=== PATIENT | male | born 1970 | race Caucasian/White ===

== ENCOUNTER 2021-12-26 09:41 | Emergency (ER) | payer SELFPAY ==
[2021-12-26 09:43] VITALS: BP 137/77; PULSE 74; RESP 20; TEMP 36.6; O2SAT 100
[2021-12-26 09:51] VITALS: RESP 20
--- NOTE | 2021-12-26 10:14 | ED.GENADUL_ITS ---
Discharge Plan Disposition Patient Disposition: HOME Condition: Stable Discharge Details Clinical Impression: Chlamydia contact Primary Care Provider: None,None ED Provider: Nat Green Home Meds and New Rx's Prescriptions: No Action ibuprofen 200 MG capsule 600 mg PO PRN PRN Discharge Instructions Instructions: Chlamydia (ED) Additional Instructions: The test will not be resulted for approximately 48 to 72 hours. You were given antibiotics here in the department to treat you empirically for the chlamydia. Please abstain from sexual intercourse until your partner is testing negative. Follow up with primary care provider in 3-5 days. Return to ED sooner if any worsening or concerns. Increase oral fluids. Medical Decision Making Urethral swab obtained patient tolerated well. No lesions or discharge noted no meatus erythema. Patient was given 2 g azithromycin and 500 mg ceftriaxone IM. Instructed on staying from sexual intercourse until results. Patient verbalized understanding. Discussed follow-up care. This text was generated using [employer] dictation system, please disregard any oddities of phrase or misspellings. HPI General Mode of arrival: ambulatory . Date/Time Provider Initiated Documentation: 12/26/21 09:56 . Limitations to Documentation: no limitations . Information obtained by: patient, RN notes reviewed and old records reviewed . HPI Narrative: 51 year old male presents to the ER with chief complaint positive contact with chlamydia. He reports that his girlfriend tested positive last week. He reports that he did have treatment for chlamydia approximately a month ago. He was recommended to get tested. He denies any dysuria no rash or any drainage. No other associated symptoms. Related Data Home Medications Medication Instructions Recorded Confirmed ibuprofen 200 mg capsule 600 mg PO PRN PRN 12/31/12 12/26/21 Allergies Allergy/AdvReac Type Severity Reaction Status Date / Time acorn squash Allergy Mild Hives Uncoded 12/26/21 09:49 General Stated Complaint: GenMedical STEPHANIE: 4 Review of Systems All systems reviewed & are unremarkable except as noted in HPI and below Genitourinary Genitourinary: Reports as per HPI, Denies difficulty urinating, Denies dysuria, Denies penile discharge, Denies testicular mass and Denies testicular pain PFSH All Active Problems (Updated 12/26/21 @ 10:50 by Nat Green NP) Chlamydia contact (Acute) Social History Smoking/Tobacco Use Status: Current every day Tobacco Type: cigarettes Smoking risk assessment performed?: Yes Drug use: Daily Substance use type: marijuana Do you feel safe at home: Yes Do you feel safe in your relationship?: Yes Exam Male General Exam: Yes normal external exam, No erythema, No lesions and No tenderness Penis: normal penis, not erythematous, no pustules, no swelling, no ulcerations and no vesicles Meatus: meatus normal Scrotum: scrotum normal Testes: normal Course Vital Signs Vital signs: Vital Signs Temperature 36.6 C 12/26/21 09:43 Pulse 74 12/26/21 09:43 Respiratory Rate 20 12/26/21 09:43 Blood Pressure 137/77 12/26/21 09:43 Pulse Oximetry 100 12/26/21 09:43 Temperature 36.6 C 12/26/21 09:43 Temperature Source Temporal Artery Scan 12/26/21 09:43 Pulse 74 12/26/21 09:43 Respiratory Rate 20 12/26/21 09:51 Respiratory Effort 12/26/21 09:51 Respiratory Depth Normal 12/26/21 09:51 Respiratory Pattern Normal 12/26/21 09:51 Blood Pressure 137/77 12/26/21 09:43 Blood Pressure Position Sitting 12/26/21 09:43 Pulse Oximetry 100 12/26/21 09:43 Oxygen Delivery Method Room Air 12/26/21 09:43 Oxygen Flow Rate 0 12/26/21 09:43 Pain Level 0 12/26/21 09:43
[2021-12-26] MEDS: cefTRIAXone 500 MG VIAL IM (10:55)
[2021-12-27 15:26] LABS: GC Result Negative (Negative)
[2021-12-27 15:57] LABS: Chlamydia Result Positive (Negative)
--- NOTE | 2021-12-30 07:12 | NUR.NOTE ---
Nursing Note: Accessed pt chart to get antibiotic information
--- NOTE | 2022-01-02 09:20 | W.ED.FU ---
Follow Up Plan: Patient positive for chlamydia. He was treated with rocephin and zithromycin 2g in ED. Patient contacted - he is asymptomatic and refraining from sex. Usual discharge instructions reviewed with patient. Patient needs PCP established and lacks insurance. Will refer to care management.
--- NOTE | 2022-01-02 09:33 | NUR.NOTE ---
Nursing Note: Pt info given to care management for follow up & to establish care. Rosemary, ED
--- NOTE | 2022-01-05 10:18 | PDOC.ERCMACT ---
- If Service Date Differs Date of service: 01/05/22 Time of Service: 10:19 Care Management Activity Note Vaughn is seen in the ED for chlamydia testing. At the request of ED provider, BALDEMAR coordinates a referral to RHONDA Marti, of [facility], on-call provider, to assist Vaughn in obtaining a follow up appointment and in establishing care with a PCP. Vaughn appears to be without health insurance. CM has outreached to patient to discuss status of insurance. If he is uninsured, CM will coordinate a referral to [facility] for assistance exploring insurance options.
== END 2021-12-26 10:59 | disposition home or self-care (01) ==
PROVIDERS: Emergency Provider Registered Nurse Emergency
DX: A74.9 Chlamydial infection, unspecified (principal); F17.210 Nicotine dependence, cigarettes, uncomplicated
CPT/HCPCS: 87491; 87591; 96372; 99284; 99283; J0696

== ENCOUNTER 2022-01-10 09:45 | Emergency (ER) | payer MEDICAID, SELFPAY ==
[2022-01-10 09:51] VITALS: BP 133/79; PULSE 81; RESP 18; TEMP 36.5; O2SAT 99
--- NOTE | 2022-01-10 10:15 | ED.GENADUL_ITS ---
Discharge Plan Disposition Patient Disposition: HOME Condition: Stable Discharge Details Clinical Impression: Tick bite Primary Care Provider: None,None ED Provider: Nat Green Home Meds and New Rx's Prescriptions: New doxycycline hyclate 100 mg tablet 100 mg PO BID 10 Days Qty: 20 0RF No Action ibuprofen 200 MG capsule 600 mg PO PRN PRN Discharge Instructions Instructions: Tick Bite (ED) Additional Instructions: Please take the antibiotic twice daily for 10 days. Prescription was sent to the pharmacy on file. You were given the first dose here. The tick and Lyme panel will result in 3 to 4 days. We will give you a call for results or follow-up with your primary care provider. Follow up with primary care provider in 3-5 days. Return to ED sooner if any worsening or concerns. Increase oral fluids. Please take Tylenol or Ibuprofen with food every 4-6 hours as needed for pain and swelling. Discharge Data Discharge Date/Time-TO BE ENTERED AT DEPARTURE: 01/10/22 11:12 Medical Decision Making Tick and Lyme panel and CBC ordered. Doxycycline 100 mg p.o. ordered. We will give patient 10 days of doxycycline twice daily. CBC within normal limits. We will treat due to length of symptoms. Patient denies any body aches headache nausea or further rash. Instructed on home care and strict return instructions, verbalized understanding. Patient was given the first dose here. This text was generated using [employer] dictation system, please disregard any oddities of phrase or misspellings. Lab Data Lab results reviewed: Yes I reviewed the patient's lab results. Labs: Laboratory Tests Range/Units 01/10/22 10:22 WBC (4.4-10.8) 10^3/uL 7.37 RBC (4.36-5.78) 10^6/uL 5.10 Hgb (13.5-17.5) g/dL 15.8 Hct (40.0-50.0) % 46.2 MCV (80-95) fL 91 MCH (27.0-33.0) pg 31.0 MCHC (32.0-36.0) % 34.2 RDW (11.8-14.1) % 12.0 Plt Count (130-400) 10^3/uL 231 MPV (8.0-11.0) fL 10.0 Immature Gran % 0.3 Neutrophils % 63.9 Lymphocytes % 27.0 Monocytes % 5.6 Eosinophils % 2.8 Basophils % 0.4 Nucleated RBC % (0.0-0.3) % 0.0 Absolute Neutrophils (1.2-6.7) 10^3/uL 4.71 Absolute Lymphocytes (1.2-3.4) 10^3/uL 1.99 Absolute Monocytes (0.1-0.8) 10^3/uL 0.41 Absolute Eosinophils (0.0-0.7) 10^3/uL 0.21 Absolute Basophils (0.0-0.2) 10^3/uL 0.03 HPI General Mode of arrival: ambulatory . Date/Time Provider Initiated Documentation: 01/10/22 10:00 . Limitations to Documentation: no limitations . Information obtained by: patient, family, RN notes reviewed and old records reviewed . HPI Narrative: 51-year-old male presents to the ER with chief complaint of tick bite to his right upper back. Patient reports that approximately 8 days ago his noticed a tick embedded. He is unsure of the length of time that the tick was in him. He states that last night increased redness and swelling. There is erythema migrans noted. He denies any headache nausea chills body aches or any other associated symptoms. He reports that it was a large tick. Related Data Home Medications Medication Instructions Recorded Confirmed ibuprofen 200 mg capsule 600 mg PO PRN PRN 12/31/12 01/10/22 doxycycline hyclate 100 mg tablet 100 mg PO BID 10 days #20 tabs 01/10/22 Previous Rx's Medication Instructions Recorded doxycycline hyclate 100 mg tablet 100 mg PO BID 10 days #20 tabs 01/10/22 Allergies Allergy/AdvReac Type Severity Reaction Status Date / Time acorn squash Allergy Mild Hives Uncoded 01/10/22 09:54 General Stated Complaint: RashLesion STEPHANIE: 3 Review of Systems All systems reviewed & are unremarkable except as noted in HPI and below Constitutional Constitutional: Denies body ache(s), Denies fever(s), Denies headache(s) and Denies malaise ENT Ears, Nose, Mouth, and Throat: Denies headache(s) Integumentary/Breasts Skin/Breast: Reports as per HPI, Reports erythema and Reports rash Neurologic Neurologic: Denies headache(s) PFSH All Active Problems (Updated 01/10/22 @ 10:23 by Nat Green NP) Tick bite (Acute) Chlamydia contact (Acute) Social History Smoking/Tobacco Use Status: Current every day Tobacco Type: cigarettes Smoking risk assessment performed?: Yes Alcohol Intake: current Alcohol Intake frequency: holidays/special occasions only Drug use: Daily Substance use type: marijuana Do you feel safe at home: Yes Do you feel safe in your relationship?: Yes Exam Skin General skin exam: induration Rashes: rashes noted macules right posterior back Full body images: 1. Approximately 3 cm x 3 cm area of maculopapular rash with extension medially which patient reports his chest started to spread. Central puncture wound noted. Course Vital Signs Vital signs: Vital Signs Temperature 36.5 C 01/10/22 09:51 Pulse 81 01/10/22 09:51 Respiratory Rate 18 01/10/22 09:51 Blood Pressure 133/79 01/10/22 09:51 Pulse Oximetry 99 01/10/22 09:51 Temperature 36.5 C 01/10/22 09:51 Temperature Source Temporal Artery Scan 01/10/22 09:51 Pulse 81 01/10/22 09:51 Respiratory Rate 18 01/10/22 09:51 Respiratory Effort Non-Labored 01/10/22 09:54 Blood Pressure 133/79 01/10/22 09:51 Blood Pressure Position Sitting 01/10/22 09:51 Pulse Oximetry 99 01/10/22 09:51 Oxygen Delivery Method Room Air 01/10/22 09:51 Oxygen Flow Rate 0 01/10/22 09:51
[2022-01-10 10:29] LABS: Abs Immature Grans 0.02 10^3/uL (0.0-0.06); Absolute Basophil Count 0.03 10^3/uL (0.0-0.2); Absolute Eosinophil Count 0.21 10^3/uL (0.0-0.7); Absolute Lymphocyte Count 1.99 10^3/uL (1.2-3.4); Absolute Monocyte Count 0.41 10^3/uL (0.1-0.8); Absolute Neutrophil Count 4.71 10^3/uL (1.2-6.7); Basophils % 0.4; Eosinophils % 2.8; HCT 46.2 % (40.0-50.0); HGB 15.8 g/dL (13.5-17.5); Immature Grans % 0.3; MCHC 34.2 % (32.0-36.0); MCV 91 fL (80-95); Monocytes % 5.6; Neutrophils % 63.9; Platelet Count 231 10^3/uL (130-400); RDW-SD 39.9 fL; WBC 7.37 10^3/uL (4.4-10.8)
[2022-01-10] MEDS: Doxycycline Hyclate 100 MG CAP PO (10:30)
[2022-01-13 10:44] LABS: Lyme Ab w Rflx to Lyme Confirm Negative (Negative)
[2022-01-13 17:33] LABS: Anaplasma phagocytophilum Negative (Negative); B. miyamotoi PCR Negative (Negative); Babesia divergens/MO-1 Negative (Negative); Babesia duncani Negative (Negative); Babesia microti Negative (Negative); Ehrlichia chaffeensis Negative (Negative); Ehrlichia ewingii/canis Negative (Negative); Ehrlichia muris eauclairensis Negative (Negative)
== END 2022-01-10 11:12 | disposition home or self-care (01) ==
PROVIDERS: Emergency Provider Registered Nurse Emergency
DX: S20.461A Insect bite (nonvenomous) of right back wall of thorax, initial encounter (principal); F17.210 Nicotine dependence, cigarettes, uncomplicated; W57.XXXA Bitten or stung by nonvenomous insect and other nonvenomous arthropods, initial encounter
CPT/HCPCS: 36415; 87798; 99283; 85025; 86618

== ENCOUNTER 2022-02-14 12:15 | Outpatient (REF) | payer MEDICAID, SELFPAY ==
[2022-02-14 16:38] LABS: Hemoglobin A1C 5.9 % (<5.7)
[2022-02-14 16:53] LABS: ALT 37 U/L (16-63); AST 15 U/L (15-37); Albumin 4.1 g/dL (3.4-5.0); Alkaline Phosphatase 78 U/L (46-116); Anion Gap 9.3 mmol/L (3-11); BUN 16 mg/dL (7-18); Bilirubin, Total 0.4 mg/dL (0.2-1.0); CO2 26.7 mmol/L (21.0-32.0); Calcium 9.1 mg/dL (8.5-10.1); Calculated LDL 74 mg/dL (<100); Chloride 104 mmol/L (98-107); Cholesterol 123 mg/dL (<200); Glucose 115 mg/dL (74-106); HDL Cholesterol 36 mg/dL (40-60); Potassium 4.3 mmol/L (3.5-5.1); Sodium 140 mmol/L (136-145); TSH (W/Ref FT4) 1.21 uIU/mL (0.36-3.74); Total Protein 7.6 g/dL (6.4-8.2); Triglyceride 66 mg/dL (<150)
[2022-02-17 09:52] LABS: PSA, Screening 1.7 ng/mL (<=3.5)
[2022-02-17 10:15] LABS: Hepatitis C Ab w Rflx HCV PCR Negative (Negative)
[2022-02-17 10:26] LABS: HIV-1/2 Ag & Ab Screen Negative (Negative)
== END 2022-02-14 12:16 | disposition home or self-care (01) ==
LOC: NCHCN 12:15
PROVIDERS: Visit Provider Nurse Practitioner Family
DX: R53.83 Other fatigue (principal); Z13.220 Encounter for screening for lipoid disorders; Z12.5 Encounter for screening for malignant neoplasm of prostate; Z11.4 Encounter for screening for human immunodeficiency virus [HIV]; Z11.59 Encounter for screening for other viral diseases
CPT/HCPCS: 80053; 80061; 84153; 86803; 87389; 83036; 84443

== ENCOUNTER 2022-03-20 12:06 | Emergency (ER) | payer MEDICAID, SELFPAY ==
[2022-03-20 12:27] VITALS: BP 134/85; PULSE 70; RESP 18; TEMP 36.8; O2SAT 96
[2022-03-20] MEDS: oxyCODONE 5 mg/Acetaminophen 325 mg TAB 2 TAB PO (13:34)
--- NOTE | 2022-03-20 14:07 | DI.RAD_ITS ---
Exam(s) XR HAND RT COMPLETE EXAM: XR HAND RT COMPLETE CLINICAL HISTORY: right hand TECHNIQUE: COMPARISON: No exams were available for comparison FINDINGS: Three views were obtained. There is carpentry nail which lies in the soft tissues of the hypothenar eminence. There is no bony involvement and no fracture seen. IMPRESSION: RADIATION DOSE DELIVERED: Total DLP
[2022-03-20 15:43] VITALS: BP 123/81; PULSE 67; TEMP 37; O2SAT 97
[2022-03-20] MEDS: Cephalexin 500 MG CAP PO (15:50)
--- NOTE | 2022-03-20 16:08 | W.ED.GENAD ---
Discharge Plan Disposition Patient Disposition: Home Condition: Stable Discharge Details Clinical Impression: Hand injury Primary Care Provider: None,None ED Provider: Marybeth Eid Home Meds and New Rx's Prescriptions: New cephalexin 500 mg capsule 500 mg PO Q6H 7 Days Qty: 28 0RF Continued ibuprofen 200 MG capsule 600 mg PO PRN PRN Discharge Instructions Additional Instructions: Keep wound clean and dry Take the antibiotics as prescribed Orthopedics will see you either tomorrow or on Thursday Should you develop spreading redness, worsening pain, fever, chills, or purulent or pussy drainage from the site you must be reevaluated immediately Elevate is much as possible Referrals: Nicholas Wesley MD [ [facility] STAFF PHYSICIAN] - Discharge Data Discharge Date/Time-TO BE ENTERED AT DEPARTURE: 03/20/22 16:18 Medical Decision Making Nails removed without incident Secondary to high impact injury and/mechanism, he will need close outpatient reassessment Case discussed with Dr. Wesley, will see pt in close outpatient setting Placed on Keflex Neurovascularly intact. Post procedure Irrigated copiously Placed in a pressure dressing Return precautions reviewed and patient expressed understanding Discharge home neurovascularly intact Medical Records Medical records reviewed: Yes I reviewed the patient's medical records. Sign Out No HPI General Date/Time Provider Initiated Documentation: 03/20/22 12:58. HPI Narrative: Patient presents status post nail gun to left hand. Denies any additional injuries. Tetanus is reportedly up-to-date. Denies strength or sensation change. Related Data Home Medications Medication Instructions Recorded Confirmed ibuprofen 200 mg capsule 600 mg PO PRN PRN 12/31/12 03/20/22 cephalexin 500 mg capsule 500 mg PO Q6H 7 days #28 caps 03/20/22 Previous Rx's Medication Instructions Recorded cephalexin 500 mg capsule 500 mg PO Q6H 7 days #28 caps 03/20/22 Allergies Allergy/AdvReac Type Severity Reaction Status Date / Time acorn squash Allergy Mild Hives Uncoded 01/10/22 09:54 General Stated Complaint: Laceration STEPHANIE: 3 Review of Systems All systems reviewed & are unremarkable except as noted in HPI and below PFSH All Active Problems (Updated 03/20/22 @ 16:13 by RHONDA Boggs) Hand injury (Acute) Chlamydia contact (Acute) Social History Smoking/Tobacco Use Status: Current every day Tobacco Type: cigarettes Smoking risk assessment performed?: Yes Alcohol Intake: current Alcohol Intake frequency: holidays/special occasions only Drug use: Daily Substance use type: marijuana Do you feel safe at home: Yes Do you feel safe in your relationship?: Yes Exam Const General: cooperative, comfortable and no acute distress Extrem Hand/finger images: 1. nail visualized, neurovascularly intact Course Vital Signs Vital signs: Vital Signs Temperature 36.8 C 03/20/22 12:27 Pulse 70 03/20/22 12:27 Respiratory Rate 18 03/20/22 12:27 Blood Pressure 134/85 03/20/22 12:27 Pulse Oximetry 96 03/20/22 12:27 Temperature 37.0 C 03/20/22 15:43 Temperature Source Tympanic 03/20/22 15:43 Pulse 67 03/20/22 15:43 Respiratory Rate 18 03/20/22 12:27 Respiratory Effort Non-Labored 03/20/22 12:29 Blood Pressure 123/81 03/20/22 15:43 Blood Pressure Position Sitting 03/20/22 12:27 Pulse Oximetry 97 03/20/22 15:43 Oxygen Delivery Method Room Air 03/20/22 15:43 Oxygen Flow Rate 0 03/20/22 15:43 Pain Level 3 03/20/22 15:43 Procedures Foreign Body Removal Time Out Performed: yes Site: left Description of foreign body: other Sedation/Analgesia: none Technique: removal with forceps Confirmed by:: direct visualization and radiograph Complications: none Post-procedure exam: awake, alert Neurovascular: normal distal pulse, normal capillary fill, distal motor function normal and no change from pre-procedure
== END 2022-03-20 16:18 | disposition home or self-care (01) ==
PROVIDERS: Emergency Provider Physician Assistant
DX: W29.4XXA Contact with nail gun, initial encounter; S61.442A Puncture wound with foreign body of left hand, initial encounter
CPT/HCPCS: 99283; 73130

== ENCOUNTER 2022-10-31 22:28 | Emergency (ER) | payer MEDICAID, SELFPAY ==
[2022-10-31 22:31] VITALS: BP 146/90; PULSE 77; RESP 18; TEMP 36.8; O2SAT 99
--- NOTE | 2022-10-31 22:38 | ED.GENADUL_ITS ---
Discharge Plan Disposition Patient Disposition: Home Condition: Good Discharge Details Clinical Impression: Abrasion, corneal, Corneal rust ring Primary Care Provider: Jayleen Amanda ED Provider: Gia Ch Home Meds and New Rx's Prescriptions: Continued ibuprofen 200 MG capsule 600 mg PO PRN PRN Discharge Instructions Instructions: Erythromycin (Into the eye), Corneal Abrasion (ED) Additional Instructions: You had 2 areas where you appear to have metal in your eye. 1 of these was removed and the other had already come out prior to you coming in. These both left small rust rings in your cornea near your pupil at the 3 and 6:00. Please use the erythromycin ointment 4 times daily. Apply as instructed by nursing staff. Please follow up with [facility] Thursday morning. Please call at 8AM Thursday, . Referral has also been sent. If you develop increased pain, discharge, fevers, visual changes or other new/worsening symptoms please return to the emergency department once again. Referrals: [facility] [Outside] Discharge Data Discharge Date/Time-TO BE ENTERED AT DEPARTURE: 10/31/22 23:42 Medical Decision Making Patient is a pleasant 51-year-old male, brought in by his , with chief complaint of foreign body sensation to left eye. 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 Tetanus is up-to-date. Patient reports that the left eye is his dominant eye. He wears glasses, does not wear contacts. Has not been to see beam dyer operator in several years. He denies any change in his vision aside for some blurry vision with diffuse tearing. Has tried flushing the eye. On exam, patient appears nontoxic. Left eye is injected, tearing. He has no FB in eye lids when everted. Pupils are equal, round, reactive. Vision intact. He has exotropia on exam, reported t obe baseline. Left eye dominant eye. With application of Tetracaine, pain resolved. Flourosceine administered. No Kassandra sign. No hyphema. Floureosciene and slit lamp show two rust rings, both over the cornea, close to pupil but not obscuring vision. Small spot of FB superficially in the small, 3 o'clock rust ring. This was able to be gently removed with sterile q-tip. Given location and proximity to pupil/visual field, I do not feel comfortable trying to remove the rust ring. Discussed with patient. His significant other reports that he has seen [facility] in the past. I have asked for him to call when they open Thursday to get appointment for Thursday morning. Will start on Erythromycin ointment, send home with medication. Strict return precautions given. No contacts. All of his questions and concerns were addr essed, he is in agreement with this plan. HPI General Date/Time Provider Initiated Documentation: 10/31/22 22:38 . Limitations to Documentation: no limitations . Information obtained by: patient, family and RN notes reviewed . History of Present Illness 51 year old M presents to the emergency department with the chief complaint of left eye FB sensation, described as moderate, with intensity rated at 6. Quality is described as burning, and is localized to the eyes. Patient reports no radiation. Patient started experiencing this hour(s) and it has been constant. No relieving factors improve symptom(s), No exacerbating factors reported . Patient notes no other symptoms.. Patient did receive the following treatments prior to arrival, other (flushed eye) Related Data Home Medications Medication Instructions Recorded Confirmed ibuprofen 200 mg capsule 600 mg PO PRN PRN 12/31/12 03/25/22 Allergies Allergy/AdvReac Type Severity Reaction Status Date / Time acorn squash Allergy Mild Hives Uncoded 03/25/22 13:22 General Stated Complaint: EyeProblem STEPHANIE: 4 Review of Systems Constitutional Constitutional: Reports as per HPI and Denies fever(s) Eyes Eyes: Reports as per HPI Integumentary/Breasts Skin/Breast: Reports as per HPI, Denies rash, Denies skin pain and Denies skin swelling PFSH All Active Problems (Updated 10/31/22 @ 23:24 by RHONDA Mitchell) Abrasion, corneal (Acute) Corneal rust ring (Acute) Foreign body of left hand (Acute 03/20/22) Chlamydia contact (Acute) Social History Smoking/Tobacco Use Status: Current every day Tobacco Type: cigarettes Smoking risk assessment performed?: Yes Alcohol Intake: current Alcohol Intake frequency: holidays/special occasions only Drug use: Daily Substance use type: marijuana Housing: house Current gender identity: male Do you feel safe at home: Yes Do you feel safe in your relationship?: Yes Exam Const General: cooperative, healthy appearing, comfortable, no acute distress, well developed and well groomed Nutritional Appearance: average body habitus and well nourished Orientation: alert, awake and oriented x3 [facility] Head: normal to inspection, normocephalic and atraumatic Ears: hearing grossly normal bilaterally and external ears normal General nose exam: external nose normal and nares normal Face and sinus: normal facial exam and face symmetric Eyes Visual Devlin: normal visual devlin by confrontation Alignment and Position: position normal and alignment abnormal bilateral exotropia (reported to be baseline) Periorbital: periorbital findings normal Eyelids: eyelids normal (everted, no FB identified) Conjunctivae: conjunctival abnormality left conjunctival injection Cornea: corneas abnormal on the left fluorescein used and abrasion (centrally over cornea, just just under the pupil) at the following clock position (6 o'clock and 3 o'clock are 1mm rust rings, punctate FB at the 3); no contact lens present, without dendrites present and without edema and fluorescein used Pupils: PERRL, normal by confrontation and accommodation normal EOM: EOM intact bilaterally Resp Effort & Inspection: normal respiratory effort, able to speak in complete sentences and no respiratory distress Skin General skin exam: no rashes or lesions noted Neuro General: patient alert, patient awake and patient oriented x3 Cranial Nerves: CN's II-XI intact bilaterally Cognition: normal cognition Speech: speech normal Gait: normal gait Psych Appearance: grossly normal and well kempt Mental Status: mental status grossly normal Speech and Movement: speech and movement normal Course Vital Signs Vital signs: Vital Signs Temperature 36.8 C 10/31/22 22:31 Pulse 77 10/31/22 22:31 Respiratory Rate 18 10/31/22 22:31 Blood Pressure 146/90 H 10/31/22 22:31 Pulse Oximetry 99 10/31/22 22:31 Temperature 36.8 C 10/31/22 22:31 Temperature Source Temporal Artery Scan 10/31/22 22:31 Pulse 77 10/31/22 22:31 Respiratory Rate 18 10/31/22 22:31 Respiratory Effort Normal 10/31/22 22:34 Blood Pressure 146/90 H 10/31/22 22:31 Blood Pressure Position Sitting 06/30/23 22:31 Pulse Oximetry 99 10/31/22 22:31 Oxygen Delivery Method Room Air 10/31/22 22:31 Oxygen Flow Rate 0 10/31/22 22:31 Pain Level 6 10/31/22 22:31 Comment worsens when closes or moves eye from side to side 10/31/22 22:31
[2022-10-31] MEDS: Fluorescein STRIPS 100/BOX 1 MG (22:53)
[2022-10-31] MEDS: Tetracaine 0.5% 4 ML BTL (22:53)
--- NOTE | 2022-10-31 23:35 | NUR.NOTE ---
Referral faxed to [facility] to f/u 11/03/22 for a rust ring near pupil.Nursing Note:
[2022-10-31] MEDS: Erythromycin Ophth Oint 3.5 GM TUBE OS (23:40)
== END 2022-10-31 23:42 | disposition home or self-care (01) ==
PROVIDERS: Emergency Provider Physician Assistant; PCP Nurse Practitioner Family
DX: T15.02XA Foreign body in cornea, left eye, initial encounter; W22.8XXA Striking against or struck by other objects, initial encounter
CPT/HCPCS: 65222; 99283; 99284